=== PATIENT | female | born 1995 | race Caucasian/White ===

== ENCOUNTER 2023-02-23 10:34 | Emergency (ER) | payer MEDICAID, SELFPAY ==
[2023-02-23 10:43] VITALS: BP 108/59; PULSE 88; RESP 18; TEMP 36.7; O2SAT 100
--- NOTE | 2023-02-23 11:39 | ED.SKABFB ---
HPI - Skin/Abscess/Foreign Bdy General Chief complaint: Skin/Abscess/Foreign Body Stated complaint: Poss Mersa or staff on face Time Seen by Provider: 02/23/23 11:39 Source: patient, RN notes reviewed and old records reviewed Mode of arrival: ambulatory Limitations: no limitations History of Present Illness HPI narrative: 27 year old female who presents to [facility] care for the past 2-3 days with complaints of possible MRSA or staph infection around nose, inside left nares, along left eyebrow, and to left cheek. Patient has some red raised spotty area noted with some white pustules, no drainage noted. Patient voices concern for MRSA, no past history herself, states mother has had MRSA in past. Patient denies any fevers chills or sweats or any body aches. MD complaint: rash and lesion Onset (ago): day(s) (2-3) Severity scale (1-10): 1 Treatments prior to arrival: none Related Data Home Medications Medication Instructions Recorded Confirmed bupropion HCl 150 mg tablet,12 hr 150 mg PO DAILY 02/23/23 02/23/23 sustained-release (Wellbutrin SR) lisdexamfetamine 40 mg capsule 40 mg PO DAILY 02/23/23 02/23/23 (Vyvanse) Allergies Allergy/AdvReac Type Severity Reaction Status Date / Time No Known Allergies Allergy Verified 02/23/23 10:51 Review of Systems Review of Systems: CONSTITUTIONAL: Denies fever, chills, or sweats. CARDIOVASCULAR: Denies chest pain, palpitations, or edema. RESPIRATORY: Denies cough or dyspnea. SKIN: Reports small scattered red areas to left cheek,left eyebrow area and along nose with area inside left nares, some pustules on eyebrow region MUSCULOSKELETAL: Denies joint pain or myalgia NEUROLOGIC: Denies headache, numbness, or weakness. All systems reviewed & are unremarkable except as noted in HPI and below PMFSH Past Medical History Medical History (Updated 02/25/23 @ 10:23 by Shaina Basilio NP) ADHD (attention deficit hyperactivity disorder) Anxiety and depression Surgical History Surgical History (Updated 02/25/23 @ 10:14 by Shaina Basilio NP) H/O laparoscopy cyst ovary Social History Social History (Updated 02/25/23 @ 10:13 by Shaina Basilio NP) Smoking status: Current every day smoker Tobacco type: e-cigarettes/vaping Alcohol intake: unknown Substance use: unknown Living arrangements: with family Gender identity (if verbalized by the patient): Female Comments At time of signature, agree with nursing past medical, surgical, social and family history. There is no relevant family history pertinent to the presenting complaint Exam Narrative: GENERAL: Well-appearing, well-nourished, and in no acute distress. HEAD: Normocephalic, atraumatic. EYES: PERRLA, conjunctivae clear, and EOMI. ENT: Mucous membranes moist. Oropharynx without edema, erythema or lesions. NECK: Supple. No lymphadenopathy CHEST: Clear to auscultation. No respiratory distress.SAO2 100% on room air HEART: Regular rate and rhythm. SKIN: Warm, dry.? Patches of red raised scattered lesions on left side of cheek,area near nose and to left eyebrow area with pustules noted along eyebrow. NEURO:? Alert and oriented x3. PSYCH: Normal mood and affect Course Course Emergency Course: Patient is aware of diagnosis, understands and agrees to treatment plan.? Anticipatory guidance given.? Patient agrees to follow-up as directed and is aware of reasons to seek care at the emergency department. Portions of this record may have been created with voice recognition software Level of Care: Express Care Visit Vital Signs Vital signs: Vital Signs Temperature 36.7 C 02/23/23 10:43 Pulse Rate 88 02/23/23 10:43 Respiratory Rate 18 02/23/23 10:43 Blood Pressure 108/59 L 02/23/23 10:43 Pulse Oximetry 100 02/23/23 10:43 Oxygen Delivery Room Air 02/23/23 10:43 Temperature 36.7 C 02/23/23 10:43 Pulse Rate 88 02/23/23 10:43 Respiratory Rate 18
== END 2023-02-23 11:55 | disposition home or self-care (01) ==
PROVIDERS: Emergency Provider Registered Nurse
DX: L98.9 Disorder of the skin and subcutaneous tissue, unspecified (principal); F90.9 Attention-deficit hyperactivity disorder, unspecified type; F41.9 Anxiety disorder, unspecified; F32.A Depression, unspecified
CPT/HCPCS: 99213; G0463